=== PATIENT | male | born 1980 | race Two or more races ===

== ENCOUNTER → 2017-05-11 | Outpatient (REF) | payer OTHER ==
[~2017-05-11] MED LIST: ATOM40CA PO; DEPA250T32 PO; DEPA500T2 PO; DRIS50002 PO; FISH500C PO; OMAC1CA PO; PRAZ1CAP PO; ZOLO100T PO
== END ==
LOC: M SMT 09:12
PROVIDERS: ATTEND Urology
DX: Z30.2 Encounter for sterilization (principal)